=== PATIENT | male | born 1930 | race Caucasian/White ===

== ENCOUNTER → 2020-10-16 | Outpatient (CLI) | payer OTHER ==
[~2020-10-16] VITALS: Ht 188 cm; Wt 101.8 kg
[~2020-10-16] MED LIST: ACID CONTROLLER20 MG PO; ASA81BEC PO; CALCIUM 600 +1 EAC6 PO; FUROSEMIDE 40 M40 MG PO; K-TAB ER20 MEQ PO; MILK OF MA400 MG/5 M PO; PAXIL20 MG PO; PLAVIX 75 MG TA75 MG PO; PROPAFENONE 22225 MG PO; SPIRIVA18 MCG INH; SYMBICORT160 MCG/4. INH; TOPROL XL25 MG PO; TYLENOL EXTRA500 MG PO
--- NOTE | ~2020-10-16 | P ---
[facility] [place] [address] PROCEDURE REPORT Name: YUE LYONS Room #: REG PHILLIP HurtadoKerry.#: [id number] Admission: 10/16/20 Attend Phys: John Morataya MD Discharge: Date of : [birth year] Report #: [id number] THIS REPORT FOR: cc: Conor Velasquez Jeffrey W. DO Couchonnal, Luis F. MD ~ PACEMAKER GENERATOR EXCHANGE PREOPERATIVE DIAGNOSIS: Pacemaker elective replacement indicator. POSTOPERATIVE DIAGNOSIS: Pacemaker elective replacement indicator. HISTORY: The patient is an 89-year-old long term patient with dementia, sick sinus syndrome. His pacemaker is at the elective replacement interval. He is here for pacemaker generator exchange. DESCRIPTION OF PROCEDURE: His underwent informed consent. We discussed the details of the procedure including the risks, which include but not limited to bleeding, infection, vascular damage, need for possible lead revisions. She understood these risks and was willing for us to proceed. The patient was brought to EP laboratory in a fasting and nonsedated state and prepped and draped in a sterile fashion, received IV vancomycin for antibiotic prophylaxis. Next, I injected lidocaine at the prior incision site. Incision was made, chronic pocket was entered and the old device was disconnected. New device connected. Tug test performed and placed back in the pocket and the pocket was irrigated with vancomycin and then closed in 2 layers with surgical glue placed to outer skin layer. The patient awoke neurologically and hemodynamically intact. No complications and no significant bleeding. The explanted device was a Medtronic, model # ADDR01, serial #[id number], implanted on 08/21/2008. The newly implanted device was a Medtronic Backus, serial #[id number]. The atrial lead was a 4076, 52 cm, serial #[id number] and the RV lead was a model #4076, 58 cm, serial #[id number]. Both leads were implanted on 08/21/2008. The atrial lead demonstrated a P-wave of 2.9 millivolts, pacing impedance 418 ohms, pacing threshold 0.5 volts at 0.5 msec. The RV lead demonstrated R waves 2.5, which were stable, pacing impedance 475 ohms, pacing threshold 0.7 volts at 0.5 milliseconds. The device was programmed back to the AAIR/DDDR 60-130 mode. CONCLUSIONS: [facility] [address] [place] [address] PROCEDURE REPORT Name: YUE LYONS [id number] Admission: 10/16/20 Attend Phys: John Morataya MD Discharge: Date of : [birth year] Report #: [id number] 1. Successful pacemaker generator exchange. 2. Satisfactory atrial and ventricular pacing and sensing thresholds. By: 0949 1022 John Morataya MD /nt
[2020-10-16 07:42] LABS: ABSOLUTE NEUTROPHILS 8.7 thou/uL (1.4-8.2); BASOPHILS 0.6 % (0.0-2.0); EOSINOPHILS 1.2 % (0.0-3.0); HEMATOCRIT 43.9 % (42.0-52.0); HEMOGLOBIN 15.1 gm/dL (14.0-18.0); LYMPHOCYTES 30.7 % (24.0-44.0); MCH 34.8 pg (26.0-34.0); MCHC 34.4 g/dL (28.0-37.0); MCV 101.3 fL (80.0-100.0); MONOCYTES 5.2 % (1.0-8.0); PLATELET COUNT 347 thou/uL (150-400); POLYS 62.3 % (36.0-66.0); RBC 4.34 mil/uL (4.50-6.00); RDW 11.9 % (10.5-14.5)
[2020-10-16 07:50] LABS: CALCIUM 9.3 mg/dL (8.5-10.1); POTASSIUM 4.5 mmol/L (3.5-5.1)
[2020-10-16 07:59] LABS: ALBUMIN 3.5 g/dL (3.4-5.0); TOTAL BILIRUBIN 0.5 mg/dL (0.2-1.0); TOTAL PROTEIN 8.2 g/dL (6.4-8.2)
[2020-10-16 08:03] LABS: INR 0.94; PROTIME 10.3 Seconds (9.3-11.4)
[2020-10-16 08:12] VITALS: BP 160/93
--- NOTE | 2020-10-16 10:21 | EKG ---
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: SBUL : 1930 Requested By: John Morataya Order Number: [id number] MD: Bala Phillips Measurements Intervals [place] Rate: 76 P: 65 SD: 176 QRS: 59 QRSD: 117 T: -86 QT: 409 QTc: 460 Interpretive Statements Sinus rhythm Atrial premature complexes Nonspecific intraventricular conduction delay Anteroseptal infarct, old Borderline repolarization abnormality Baseline wander in lead(s) I,II,aVR No previous ECG available for comparison Electronically Signed On 10-16-2020 10:21:23 CDT by Bala Phillips [email or web address] <ELECTRONICALLY SIGNED> By: Bala Phillips MD, [facility] 10/16/20 1021 08 08 Bala Phillips MD, [facility] /EPI
== END | disposition home or self-care (01) ==
LOC: CATH 06:26
PROVIDERS: ATTEND Internal Medicine Cardiovascular Disease
DX: Z45.010 Encounter for checking and testing of cardiac pacemaker pulse generator [battery] (principal); I49.5 Sick sinus syndrome; I48.91 Unspecified atrial fibrillation; I25.10 Atherosclerotic heart disease of native coronary artery without angina pectoris; E78.5 Hyperlipidemia, unspecified; K21.9 Gastro-esophageal reflux disease without esophagitis; F03.90 Unspecified dementia, unspecified severity, without behavioral disturbance, psychotic disturbance, mood disturbance, and anxiety; Z98.890 Other specified postprocedural states; Z79.899 Other long term (current) drug therapy; Z86.73 Personal history of transient ischemic attack (TIA), and cerebral infarction without residual deficits; Z88.8 Allergy status to other drugs, medicaments and biological substances; Z79.01 Long term (current) use of anticoagulants
CPT/HCPCS: 62110; 62900; 70005